=== PATIENT | female | born 1990 | race Caucasian/White ===

== ENCOUNTER 2017-07-24 20:48 | Emergency (ER) | payer SELFPAY ==
[2017-07-24 20:59] VITALS: BMI 35.2
[2017-07-24 22:13] LABS: BILIRUBIN,URINE NEGATIVE (NEGATIVE); BLOOD/HEMOGLOBIN,URINE 1+ (NEGATIVE); GLUCOSE, URINE NEGATIVE (NEGATIVE); KETONES,URINE NEGATIVE (NEGATIVE); LEUKOCYTE ESTERASE ,URINE 1+ (NEGATIVE); NITRITES,URINE NEGATIVE (NEGATIVE); PROTEIN,URINE 1+ (NEGATIVE); UROBILINOGEN,URINE NORMAL (NORMAL)
[2017-07-24 22:23] LABS: APPEARANCE,URINE SLIGHTLY HAZY (CLEAR); BACTERIA,URINE 2+ /HPF (NEGATIVE); COLOR,URINE YELLOW (YELLOW); MUCUS,URINE MODERATE /HPF (NEGATIVE); RENAL EPITHELIAL CELLS,URINE FEW /HPF (NEGATIVE); SQUAMOUS EPITHELIAL CELL,UR FEW /HPF (NEGATIVE)
--- NOTE | 2017-07-24 23:19 | DR.GENAD ---
HPI - PCP Primary Care Physician: NFD - Complaint/Symptoms Chief Complaint Doctors Comments: Patient admits to being ten weeks . She denies fever, vomiting or diarrhea. Chief Complaint:: CRAMPING IN LOWER RIGHT ABDOMEN AND DIARHHEA Self Treatment fo Chief Complaint: MOTRIN LAST DOSE AT 1630 TODAY - Source History Provided: Patient - Mode of Arrival Mode of Arrival: Ambulatory - Timing Onset of Chief Complaint: 07/22/17 PMH - PMH Past Medical History: No Past Medical History: Hypothyroidism Past Surgical History: Yes Surgical History: , Ortho Surgery, Tonsillectomy - Family History History of Family Medical Conditions: Yes Family Medical History: Diabetes Mellitus, Cancer, Hypertension Family Medical History Comment: LUPUS - Social History Does patient currently use any type of tobacco product: Yes Have you used tobacco products in the last 12 months: No Type of Tobacco Use: Cigarettes Does any household member use tobacco: No Alcohol Use: None Do you use any recreational Drugs:: No Lives With: Spouse Lives Where: Home - infectious screening In the last 2 months have you had wt loss of >10#?: NO Have you had fever, night sweats or hemotysis?: No Have you traveled outside the country in the last 6 months?: No Isolation: Standard ROS - Review of Systems Eyes: No Symptoms Reported ENTM: No Symptoms Reported Respiratoy: No Symptoms Reported Cardiovascular: No Symptoms Reported Gastrointestinal/Abdominal: No Symptoms Reported Genitourinary: Dysuria, Frequency Neurological: No Symptoms Reported Musculoskeletal: No Symptoms Reported Integumentary: No Symptoms Reported Hematologic/Lymphatic: No Symptoms Reported Endocrine: No Symptoms Reported Psychiatric: No Symptoms Reported All Other Systems: Reviewed and Negative PE - Vital Signs Vitals: Temperature 98.2 F Pulse Rate 81 Respiratory Rate 20 Blood Pressure [Right Arm] 141/77 Blood Pressure 142/80 O2 Sat by Pulse Oximetry 100 - General Limitations: No Limitations General Appearance: Alert, In No Apparent Distress - Head Head Exam: Normal Inspection, Atraumatic - Eyes Eye exam: Normal Appearance, PERRL, EOMI - ENT ENT Exam: Normal Exam External Ear Exam: Normal External Inspection TM/Canal Exam: Bilateral Normal Nose Exam: Normal Nose Exam Mouth Exam: Normal Inspection Throat Exam: Normal Inspection - Neck Neck Exam: Normal Inspection, Full ROM - Chest Chest Inspection: Normal Inspection, Symmetric Chest Wall Rise - Respiratory Respiratory Exam: Normal Lung Sounds Bilat Respiratory Exam: Bilateral Clear to Auscultation - Cardiovascular Cardiovascular Exam: Regular Rate, Normal Rhythm - Abdominal Exam Abdominal Exam: Normal Inspection, Normal Bowel Sounds Abdominal Tenderness: Suprapubic - Extremities Extremities Exam: Normal Inspection - Back Back Exam: Normal Inspection - Neurologic Neurological Exam: Alert, Oriented X3, CN II-XII Intact - Psychiatric Psychiatric Exam: Normal Affect - Skin Skin Exam: Warm, Dry, Intact ROR - Labs Reviewed Laboratory Results Reviewed?: Yes (UA:Leuk +, WBC TNTC) Laboratory: Specimen Type Clean catch urine 07/24/17 21:46 Urine Color Yellow (YELLOW) 07/24/17 21:46 Urine Appearance Slightly hazy (CLEAR) 07/24/17 21:46 Urine pH 5.0 (5.0 - 8.0) 07/24/17 21:46 Ur Specific [place] 1.030 (1.000-1.030) 07/24/17 21:46 Urine Protein 1+ (NEGATIVE) 07/24/17 21:46 Urine Glucose (UA) Negative (NEGATIVE) 07/24/17 21:46 Urine Ketones Negative (NEGATIVE) 07/24/17 21:46 Urine Occult Blood 1+ (NEGATIVE) 07/24/17 21:46 Urine Nitrite Negative (NEGATIVE) 07/24/17 21:46 Urine Bilirubin Negative (NEGATIVE) 07/24/17 21:46 Urine Urobilinogen Normal (NORMAL) 07/24/17 21:46 Ur Leukocyte Esterase 1+ (NEGATIVE) 07/24/17 21:46 Urine RBC 5-7 /HPF (NEGATIVE) 07/24/17 21:46 Urine WBC Tntc /HPF (NEGATIVE) 07/24/17 21:46 Ur Squamous Epith Cells Few /HPF (NEGATIVE) 07/24/17 21:46 Ur Renal Epithelial Cell Few /HPF (NEGATIVE) 07/24/17 21:46 Urine Bacteria 2+ /HPF (NEGATIVE) 07/24/17 21:46 Urine Mucus Moderate /HPF (NEGATIVE) 07/24/17 21:46 Ur Culture Indicated? Yes/culture set up 07/24/17 21:46 - Diagnosis Discharge Problem: UTI in Qualifiers: Trimester: first trimester Qualified Code(s): O23.41 - Unspecified infection of urinary tract in , first trimester - Discharge Plan Condition: Stable - Follow ups/Referrals Follow ups/Referrals: NFD,None [Primary Care Provider] - 3 days - Instructions
[2017-07-24] MEDS ORDERED: MACROBID CAP 100 MG EXT REL PO ONE ×2 (23:26→23:29)
[2017-07-25 00:20] VITALS: BP 117/72
== END 2017-07-25 00:15 | disposition home or self-care (01) ==
LOC: ER 21:19
DX: O23.41 Unspecified infection of urinary tract in pregnancy, first trimester (principal); Z3A.10 10 weeks gestation of pregnancy
CPT/HCPCS: 81001; 87086; 99282